=== PATIENT | male | born 1995 | race Caucasian/White ===

== ENCOUNTER 2021-06-04 14:22 | Emergency (ER) | payer OTHER ==
[~2021-06-04] VITALS: Ht 188 cm; Wt 154.2 kg
[2021-06-04 15:29] LABS: HEMATOCRIT 49.3 % (42.0-52.0); HEMOGLOBIN 17.1 gm/dL (14.0-18.0); MCHC 34.6 g/dL (28.0-37.0); MCV 89.7 fL (80.0-100.0); MPV 8.9 fl. (7.2-11.1); NUCLEATED RBCS 0 /100WBC; PLATELET COUNT* 268 thou/uL (150-400); WBC 14.6 thou/uL (4.0-11.0)
[2021-06-04 15:37] LABS: CALCIUM 8.5 mg/dL (8.5-10.1); CREATININE 1.1 mg/dL (0.6-1.3)
[2021-06-04 15:42] LABS: ALBUMIN 3.9 g/dL (3.4-5.0); TOTAL PROTEIN 7.3 g/dL (6.4-8.2)
[2021-06-04 15:53] LABS: ABSOLUTE MONOCYTES 0.9 thou/uL (0.0-1.2); ABSOLUTE NEUTROPHILS 12.7 thou/uL (1.6-8.1); PLATELET ESTIMATE INCREASED
[2021-06-04 16:47] LABS: URINE BILIRUBIN NEGATIVE (Negative); URINE BLOOD NEGATIVE (Negative); URINE CLARITY CLEAR; URINE COLOR YELLOW; URINE GLUCOSE-RANDOM NEGATIVE (Negative); URINE KETONES NEGATIVE (Negative); URINE LEUKOCYTES-REFLEX NEGATIVE (Negative); URINE NITRITE-REFLEX NEGATIVE (Negative); URINE PROTEIN NEGATIVE (Negative); URINE SPECIFIC GRAVITY <= 1.005 (1.005-1.030); URINE UROBILINOGEN 0.2 E.U./dl (0.2-1.0)
[2021-06-04] MEDS ORDERED: ZOFRAN ODT4 MG PO (16:53)
[2021-06-04] MEDS ORDERED: AMOX TR-K CLV1 EAC4 PO (16:53)
[2021-06-04] MEDS ORDERED: HYDROCODON-ACE1 EAC7 PO (16:55)
[2021-06-04 17:00] VITALS: BP 121/73
== END 2021-06-04 17:00 | disposition home or self-care (01) ==
LOC: M.ERS 14:22
PROVIDERS: Student in an Organized Health Care Education/Training Program
DX: R11.2 Nausea with vomiting, unspecified (principal); R19.7 Diarrhea, unspecified